=== PATIENT | male | born 1960 | race Caucasian/White ===

== ENCOUNTER 2017-03-25 09:23 | Inpatient (IN) | payer BC ==
[~2017-03-25] VITALS: Ht 185.4 cm; Wt 81.6 kg
[2017-03-25 11:21] LABS: CLARITY URINE CLEAR (CLEAR); COLOR URINE DARK YELLOW (YELLOW); GLUCOSE URINE NEGATIVE (NEGATIVE); KETONES URINE NEGATIVE (NEGATIVE); LEUKOCYTE ESTERASE URINE NEGATIVE (NEGATIVE); NITRITE URINE NEGATIVE (NEGATIVE); OCCULT BLOOD URINE NEGATIVE (NEGATIVE); PROTEIN URINE NEGATIVE (NEGATIVE); SPECIFIC GRAVITY URINE 1.026 (1.005-1.030)
[2017-03-25 11:49] LABS: *AMPHETAMINES SCREEN URINE NEGATIVE (NEGATIVE); *BARBITURATES SCREEN URINE NEGATIVE (NEGATIVE); *BENZODIAZEPINES SCREEN URINE NEGATIVE (NEGATIVE); *COCAINE SCREEN URINE NEGATIVE (NEGATIVE); CANNABINOID URINE SCREEN NEGATIVE (NEGATIVE); METHADONE URINE SCREEN NEGATIVE (NEGATIVE); OPIATES URINE SCREEN NEGATIVE (NEGATIVE); PHENCYCLIDINE URINE SCREEN NEGATIVE (NEGATIVE)
[2017-03-25 12:20] LABS: BASOPHILS % 0.8 % (0.0-2.0); EOSINOPHILS % 0.9 % (0.0-5.0); HEMATOCRIT. 40.9 % (42.0-52.0); HEMOGLOBIN. 14.2 g/dL (14.0-18.0); MEAN CORPUSCULAR HEMOGLOBIN 32.5 pg (28.0-32.0); MEAN CORPUSCULAR VOLUME 93.5 fL (80.0-94.0); MEAN PLATELET VOLUME 7.7 fl (7.4-10.4); MONOCYTES % 6.7 % (2.0-8.0); NEUTROPHILS % 67.6 % (40.0-76.0); PLATELET 183 x1000/uL (130-400); RED BLOOD CELL COUNT 4.37 mill/uL (4.7-6.1); RED CELL DISTRIBUTION WIDTH 13.1 % (11.6-14.6)
[2017-03-25 12:36] LABS: CARBON DIOXIDE 25 mEq/L (21-32); CHLORIDE 106 mEq/L (98-107); ETHANOL BLOOD < 10 mg/dL; TROPONIN I < 0.02 ng/mL (0.00-0.04)
[2017-03-25] MEDS ORDERED: ASPIRIN 325MG TABLET PO ONE (13:45)
[2017-03-25 14:51] VITALS: BP 171/85
[2017-03-25] MEDS ORDERED: PIRO20CA2 PO (15:32)
[2017-03-25] MEDS ORDERED: ATEN-42 PO (15:33)
[2017-03-25] MEDS ORDERED: GEMF600T3 PO (15:35)
[2017-03-25] MEDS ORDERED: OMEP20CA10 PO (15:36)
[2017-03-25] MEDS ORDERED: ALLO300T2 PO (15:37)
[2017-03-25] MEDS ORDERED: AMLO5TAB88 PO (15:40)
[2017-03-25] MEDS ORDERED: SIMV40TA5 PO (15:40)
[2017-03-25] MEDS ORDERED: TADA5TAB PO (15:43)
[2017-03-25] MEDS ORDERED: OMEG1CAP84 PO (15:45)
[2017-03-25 16:00] VITALS: BP 165/85
[2017-03-25] MEDS ORDERED: CLONIDINE 0.1MG TABLET PO PRN (18:12)
[2017-03-25] MEDS ORDERED: TRAMADOL 50MG TABLET PO PRN (18:20)
[2017-03-25] MEDS: AMLODIPINE 10MG TABLET PO SCH (18:29)
[2017-03-25 20:00] VITALS: BP 122/82
[2017-03-26] VITALS: BP 132/78
[2017-03-26 04:00] VITALS: BP 139/82
[2017-03-26 06:51] LABS: EOSINOPHILS % 2.3 % (0.0-5.0); HEMATOCRIT. 40.1 % (42.0-52.0); HEMOGLOBIN. 14.1 g/dL (14.0-18.0); LYMPHOCYTES % 29.4 % (20.0-50.0); MEAN CORPUSCULAR HEMOGLOBIN 33.2 pg (28.0-32.0); MEAN CORPUSCULAR VOLUME 94.7 fL (80.0-94.0); MEAN PLATELET VOLUME 8.7 fl (7.4-10.4); MONOCYTES % 9.9 % (2.0-8.0); NEUTROPHILS % 57.4 % (40.0-76.0); PLATELET 166 x1000/uL (130-400); RED BLOOD CELL COUNT 4.24 mill/uL (4.7-6.1); RED CELL DISTRIBUTION WIDTH 12.7 % (11.6-14.6)
[2017-03-26 07:34] LABS: CARBON DIOXIDE 25 mEq/L (21-32); CHLORIDE 105 mEq/L (98-107)
[2017-03-26 08:00] VITALS: BP 135/76
[2017-03-26] MEDS: AMLODIPINE 10MG TABLET PO SCH (08:41)
[2017-03-26] MEDS ORDERED: ASPIRIN 81MG EC TABLET PO SCH (09:00)
[2017-03-26] MEDS ORDERED: POTASSIUM CHLORIDE 20MEQ TABLET SR PO SCH (12:15)
[2017-03-26 16:00] VITALS: BP 126/86
== END 2017-03-26 17:10 | disposition left against medical advice (07) | DRG 69 ==
LOC: ER 09:23 → 5WST 13:34 → EDBEDREQ 13:37 → ENRESERV 13:41
PROVIDERS: ADMIT Hospitalist; ATTEND Hospitalist
DX: G45.9 Transient cerebral ischemic attack, unspecified (principal); E78.00 Pure hypercholesterolemia, unspecified; E78.5 Hyperlipidemia, unspecified; F17.200 Nicotine dependence, unspecified, uncomplicated; E87.6 Hypokalemia; I10 Essential (primary) hypertension; Z53.21 Procedure and treatment not carried out due to patient leaving prior to being seen by health care provider; M10.9 Gout, unspecified; Z96.649 Presence of unspecified artificial hip joint; Z88.0 Allergy status to penicillin; Z72.89 Other problems related to lifestyle
CPT/HCPCS: 36415; 70450; 70551; 71010; 80048; 80053; 80061; 80305; 81003; 82962; 84484; 85025; 93005; 93880; 99285; G0482